=== PATIENT | female | born 1965 | race Caucasian/White ===

== ENCOUNTER 2017-02-08 15:10 | Inpatient (IN) ==
[2017-02-08 16:43] LABS: Basophils # 0.1 10*3/uL (0.0-0.2); Basophils % 0.4 % (0.0-0.8); Eosinophils # 0.1 10*3/uL (0.0-0.87); Eosinophils % 0.7 % (0.00-10.9); Hematocrit 43.9 VOL% (35.7-47.0); Hemoglobin 14.8 GM/DL (12.0-16.0); Immature Granulocytes % 0.5 %; Immature Granulocytes Absolute 0.06 #; Lymphocytes # 1.3 10*3/uL (1.4-4.0); Lymphocytes % 11.3 % (21.3-54.2); Mean Corpuscular HGB Conc 33.7 GM/DL (32-36); Mean Corpuscular Hemoglobin 27 PG (27-34); Mean Corpuscular Volume 81.3 FL (87-102); Mean Platelet Volume 10.3 FL (9.6-12.0); Monocytes # 0.3 10*3/uL (0.11-0.8); Monocytes % 2.6 % (1.7-12.7); Neutrophils # 9.6 10*3/uL (1.4-7.4); Neutrophils % 84.5 % (38.7-73.9); Platelet Count 175 T/CUMM (130-400); Red Cell Distribution Width 14.1 % (9.3-17.3); White Blood Count 11.3 T/CUMM (4-12)
[2017-02-08 16:57] LABS: INR 0.9; PT Patient Result 9.4 SECS
[2017-02-08 17:05] LABS: Albumin 3.7 G/DL (3.4-5.0); Bilirubin,Total 0.4 MG/DL (0.2-1.0); Calcium 8.4 MG/DL (8.5-10.1); Osmolality,Calculated 283.2 MOS/KG (273-304); Potassium 4.5 MMOL/L (3.5-5.1); Total Protein 7.4 G/DL (6.4-8.3)
[2017-02-08 17:07] LABS: Troponin I Only < 0.015 NG/ML (0.00-0.045)
[2017-02-08] MEDS ORDERED: APIXABAN 5 MG TABLET PO STA (17:23)
[2017-02-08] MEDS ORDERED: APIXABAN 5 MG TABLET ONE (17:49)
[2017-02-08] MEDS ORDERED: ALBUTEROL 2.5 MG/3 ML NEB RESP TX PRN (18:16)
[2017-02-08] MEDS ORDERED: GLUCAGON 1 MG VIAL IM PRN (18:22)
[2017-02-08] MEDS ORDERED: DEXTROSE 50% 25 GM/50 ML VIAL IV PRN (18:22)
[2017-02-08] MEDS ORDERED: ONDANSETRON 4 MG/2 ML VIAL IV PRN (18:22)
[2017-02-08] MEDS ORDERED: DOCUSATE SODIUM 100 MG CAPSULE PO PRN (18:22)
[2017-02-08] MEDS: SODIUM CHLORIDE 0.9% 1,000 ML IV SCH (20:59)
[2017-02-08] MEDS: GABAPENTIN 100 MG CAPSULE PO SCH (21:48)
[2017-02-08] MEDS: guaiFENesin 200 MG/10 ML UDCUP PO PRN (21:48)
[2017-02-08] MEDS: HydrOXYzine PAMOATE 50 MG CAPSULE PO SCH (21:48)
[2017-02-08] MEDS: PANTOPRAZOLE 40 MG VIAL IV SCH (21:49)
[2017-02-09] MEDS: INSULIN REGULAR 100 UNIT/ML SUBCUT SCH ×5 (00:09→21:34)
[2017-02-09 02:09] LABS: Basophils % 0.2 % (0.0-0.8); Hematocrit 43.9 VOL% (35.7-47.0); Immature Granulocytes % 0.9 %; Immature Granulocytes Absolute 0.08 #; Lymphocytes # 1.5 10*3/uL (1.4-4.0); Lymphocytes % 16.6 % (21.3-54.2); Mean Corpuscular HGB Conc 31.9 GM/DL (32-36); Mean Corpuscular Hemoglobin 27 PG (27-34); Mean Corpuscular Volume 83.3 FL (87-102); Mean Platelet Volume 10.2 FL (9.6-12.0); Monocytes # 0.4 10*3/uL (0.11-0.8); Monocytes % 4.2 % (1.7-12.7); Neutrophils # 7.3 10*3/uL (1.4-7.4); Neutrophils % 78.1 % (38.7-73.9); Platelet Count 182 T/CUMM (130-400); Red Blood Count 5.27 MC/CUMM (3.8-5.5); Red Cell Distribution Width 13.9 % (9.3-17.3); White Blood Count 9.3 T/CUMM (4-12)
[2017-02-09 02:44] LABS: Calcium 8.1 MG/DL (8.5-10.1); Osmolality,Calculated 288.5 MOS/KG (273-304); Potassium 4.2 MMOL/L (3.5-5.1)
[2017-02-09] MEDS: guaiFENesin 200 MG/10 ML UDCUP PO PRN ×2 (04:17→09:17)
[2017-02-09] MEDS: APIXABAN 5 MG TABLET PO SCH ×2 (05:10→18:33)
[2017-02-09] MEDS: SODIUM CHLORIDE 0.9% 1,000 ML IV SCH (08:26)
[2017-02-09] MEDS ORDERED: METFORMIN HCL PO SCH (09:00)
[2017-02-09] MEDS ORDERED: INSULIN DEGLUDEC 30 UNIT SUBCUT SCH (09:00)
[2017-02-09] MEDS ORDERED: DAPAGLIFLOZIN PO SCH (09:00)
[2017-02-09] MEDS ORDERED: [UNRECOGNIZED DRUG - OTHER] PO SCH (09:00)
[2017-02-09] MEDS: FLUoxetine 20 MG CAPSULE PO SCH (09:15)
[2017-02-09] MEDS: HydrOXYzine PAMOATE 50 MG CAPSULE PO SCH ×2 (09:15→21:34)
[2017-02-09] MEDS: amLODIPine 10 MG TABLET PO SCH (09:15)
[2017-02-09] MEDS: GABAPENTIN 100 MG CAPSULE PO SCH ×2 (09:15→21:34)
[2017-02-09] MEDS: PANTOPRAZOLE 40 MG VIAL IV SCH (18:33)
[2017-02-09] MEDS ORDERED: INSULIN REGULAR 100 UNIT/ML ONE (18:41)
[2017-02-10] MEDS: APIXABAN 5 MG TABLET PO SCH (06:26)
[2017-02-10] MEDS: guaiFENesin 200 MG/10 ML UDCUP PO PRN (06:29)
[2017-02-10 08:13] VITALS: BP 147/71
[2017-02-10] MEDS: HydrOXYzine PAMOATE 50 MG CAPSULE PO SCH (08:40)
[2017-02-10] MEDS: amLODIPine 10 MG TABLET PO SCH (08:40)
[2017-02-10] MEDS: GABAPENTIN 100 MG CAPSULE PO SCH (08:40)
[2017-02-10] MEDS: FLUoxetine 20 MG CAPSULE PO SCH (08:40)
[2017-02-10] MEDS: INSULIN REGULAR 100 UNIT/ML SUBCUT SCH (08:41)
== END 2017-02-10 13:04 | disposition home or self-care (01) | DRG 176 ==
LOC: N.ED 15:10 → N.EDINP 18:17 → N.ICU 19:25 → N.TELEN 02-09 11:08
PROVIDERS: ADMIT Internal Medicine; ATTEND Internal Medicine

== ENCOUNTER 2018-10-28 16:45 | Inpatient (IN) ==
[2018-10-28] MEDS ORDERED: LEVOFLOXACIN INJ 750 MG in PREMIX 1 EACH IV STA (20:36)
[2018-10-28] MEDS ORDERED: AZITHROMYCIN INJ 500 MG in SODIUM CHLORIDE 0.9% 250 ML IV STA (20:36)
[2018-10-28] MEDS ORDERED: SODIUM CHLORIDE 0.9% 500 ML IV STA (20:36)
[2018-10-28] MEDS ORDERED: methylPREDNISolone SOD SUC 125 MG/2 ML VIAL IV STA (20:36)
[2018-10-28] MEDS ORDERED: ONDANSETRON 4 MG/2 ML VIAL IV STA (20:36)
[2018-10-28] MEDS ORDERED: ALBUTEROL 2.5 MG/3 ML NEB RESP TX SCH (21:00)
[2018-10-28 21:14] LABS: ABG Base Excess 2.4 MMOL/L (-2.5-2.5); ABG HCO3 25.9 MMOL/L (20-26); ABG Oxygen Saturation 92.9 % (95-100); ABG PCO2 36.6 MM HG (35-48); ABG PH 7.468 (7.35-7.45); ABG PO2 62.6 MM HG (80-95); Allen Test Positive; Pt O2 Delivery Device Room Air
[2018-10-28 21:21] LABS: Basophils # 0.1 10*3/uL (0.0-0.2); Basophils % 0.4 % (0.0-0.8); Eosinophils # 0.1 10*3/uL (0.0-0.87); Eosinophils % 0.4 % (0.00-10.9); Hematocrit 43.2 VOL% (35.7-47.0); Hemoglobin 14.3 GM/DL (12.0-16.0); Immature Granulocytes % 0.9 %; Immature Granulocytes Absolute 0.12 #; Lymphocytes % 14.3 % (21.3-54.2); Mean Corpuscular HGB Conc 33.1 GM/DL (32-36); Mean Corpuscular Volume 86.7 FL (87-102); Monocytes % 4.5 % (1.7-12.7); Neutrophils % 79.5 % (38.7-73.9); Platelet Count 188 T/CUMM (130-400); Red Blood Count 4.98 MC/CUMM (3.8-5.5); White Blood Count 13.9 T/CUMM (4-12)
[2018-10-28 21:35] LABS: PT Patient Result 10.4 SECS (9.6-12.2)
[2018-10-28 21:41] LABS: Albumin 3.4 G/DL (3.4-5.0); Bilirubin,Total 0.6 MG/DL (0.2-1.0); Calcium 8.3 MG/DL (8.5-10.1); Total Protein 6.9 G/DL (6.4-8.3)
[2018-10-28] MEDS ORDERED: MAGNESIUM SULF RIDER 2 GM in PREMIX 1 EACH IV STA (22:24)
[2018-10-28] MEDS ORDERED: MORPHINE 4 MG/1 ML VIAL IV PRN (22:57)
[2018-10-28] MEDS ORDERED: diphenhydrAMINE CAP 25 MG CAPSULE PO PRN (22:57)
[2018-10-28] MEDS ORDERED: PROMETHAZINE 25 MG/1 ML VIAL IM PRN (22:57)
[2018-10-28] MEDS ORDERED: GLUCAGON 1 MG VIAL IM PRN (22:57)
[2018-10-28] MEDS ORDERED: NICOTINE 21 MG/24 HR PATCH TRANSDERM PRN (22:57)
[2018-10-28] MEDS ORDERED: BISACODYL 5 MG TABLET PO PRN (22:57)
[2018-10-28] MEDS ORDERED: ONDANSETRON 4 MG/2 ML VIAL IV PRN (22:57)
[2018-10-28] MEDS ORDERED: DEXTROSE 50% 25 GM/50 ML VIAL IV PRN (22:57)
[2018-10-28] MEDS ORDERED: SODIUM CHLORIDE 0.9% 3,300 ML IV ONE (23:06)
[2018-10-29 00:11] LABS: Risk Ratio 4.45; VLDL CHOLESTEROL 21.4 MG/DL
[2018-10-29] MEDS: SODIUM CHLORIDE 0.9% 1,000 ML IV SCH ×3 (01:30→18:27)
[2018-10-29] MEDS: INSULIN REGULAR 100 UNIT/ML SUBCUT SCH ×5 (01:46→18:24)
[2018-10-29 02:24] LABS: Basophils % 0.3 % (0.0-0.8); Hematocrit 40.7 VOL% (35.7-47.0); Hemoglobin 13.2 GM/DL (12.0-16.0); Immature Granulocytes % 0.7 %; Immature Granulocytes Absolute 0.08 #; Lymphocytes # 0.7 10*3/uL (1.4-4.0); Lymphocytes % 5.7 % (21.3-54.2); Mean Corpuscular HGB Conc 32.4 GM/DL (32-36); Mean Corpuscular Volume 89.1 FL (87-102); Mean Platelet Volume 10.3 FL (9.6-12.0); Monocytes % 0.9 % (1.7-12.7); Neutrophils % 92.4 % (38.7-73.9); Platelet Count 161 T/CUMM (130-400); Red Blood Count 4.57 MC/CUMM (3.8-5.5); Red Cell Distribution Width 14.1 % (9.3-17.3); White Blood Count 12.2 T/CUMM (4-12)
[2018-10-29 02:42] LABS: Albumin 2.8 G/DL (3.4-5.0); Bilirubin,Total 0.6 MG/DL (0.2-1.0); Calcium 7.1 MG/DL (8.5-10.1); Osmolality,Calculated 293.7 MOS/KG (273-304); Total Protein 6.5 G/DL (6.4-8.3)
[2018-10-29 02:45] LABS: Anisocytosis 1+; Band Neutrophils 7 % (0-10); Lymphocytes 2 % (20-55); Segmented Neutrophils 90 % (50-85); Total Cells Counted 100
[2018-10-29 02:46] LABS: Platelet Estimate Adequate
[2018-10-29 04:02] LABS: ABG Base Excess -2.5 MMOL/L (-2.5-2.5); ABG HCO3 22.2 MMOL/L (20-26); ABG Oxygen Saturation 95.5 % (95-100); ABG PCO2 41.6 MM HG (35-48); ABG PH 7.351 (7.35-7.45); ABG PO2 78.8 MM HG (80-95); ABG TCO2 20.3 MMOL/L (23-27)
[2018-10-29] MEDS ORDERED: SODIUM CHLORIDE 0.9% 1,000 ML IV ONE (06:40)
[2018-10-29] MEDS: ALBUTEROL/IPRATROPIUM 3 ML NEB RESP TX SCH ×4 (07:46→19:30)
[2018-10-29] MEDS ORDERED: MAGNESIUM SULF RIDER 4 GM in PREMIX 1 EACH IV PRN (08:22)
[2018-10-29] MEDS ORDERED: MAGNESIUM SULF RIDER 2 GM in PREMIX 1 EACH IV PRN (08:22)
[2018-10-29] MEDS ORDERED: Fluticasone Furoate-Vilanterol [Breo Ellipta] 1 PUFF INH SCH (09:00)
[2018-10-29] MEDS ORDERED: INSULIN GLARGINE 100 UNIT/ML SUBCUT SCH (09:00)
[2018-10-29] MEDS: amLODIPine 10 MG TABLET PO SCH (09:16)
[2018-10-29] MEDS: APIXABAN 5 MG TABLET PO SCH ×2 (09:16→21:14)
[2018-10-29 11:07] LABS: Apearance,Urine CLEAR (Clear); Bilirubin,Urine Negative (Negative); Blood, Urine Negative (Negative); Glucose,Urine (UA) >=500 mg/dL (Negative); Ketones,Urine 20 mg/dL (Negative); Nitrite,Urine Negative (Negative); Protein,Urine Negative; RBC,Urine 2 /HPF (0-4); Squamous Epithelial Cell,Urine Occasional /HPF (0-10); Urine Color Straw (Yellow); Urine Specific Gravity 1.022 (1.001-1.035); Urine Urobilinogen < 2.0 EU/DL (0.2-1.0); WBC,Urine <1 /HPF (0-6)
[2018-10-29] MEDS: guaiFENesin/DM ER 600-30 MG TABLET PO PRN (17:06)
[2018-10-29] MEDS: SIMVASTATIN 20 MG TABLET PO SCH (21:14)
[2018-10-29] MEDS: FLUoxetine 20 MG CAPSULE PO SCH (21:14)
[2018-10-29] MEDS: GABAPENTIN 300 MG CAPSULE PO SCH (21:14)
[2018-10-29] MEDS ORDERED: AZITHROMYCIN INJ 500 MG in SODIUM CHLORIDE 0.9% 250 ML IV SCH (22:00)
[2018-10-29] MEDS: LEVOFLOXACIN INJ 750 MG in PREMIX 1 EACH IV SCH (22:19)
[2018-10-30] MEDS: ALBUTEROL/IPRATROPIUM 3 ML NEB RESP TX SCH ×4 (00:16→19:02)
[2018-10-30] MEDS: INSULIN REGULAR 100 UNIT/ML SUBCUT SCH ×4 (02:11→18:35)
[2018-10-30] MEDS: SODIUM CHLORIDE 0.9% 1,000 ML IV SCH ×3 (03:05→21:30)
[2018-10-30] MEDS: ACETAMINOPHEN 325 MG TABLET PO PRN ×3 (03:49→18:31)
[2018-10-30] MEDS: APIXABAN 5 MG TABLET PO SCH ×2 (09:34→21:29)
[2018-10-30] MEDS: amLODIPine 10 MG TABLET PO SCH (09:34)
[2018-10-30] MEDS: INSULIN GLARGINE 100 UNIT/ML SUBCUT SCH (09:34)
[2018-10-30] MEDS: guaiFENesin/DM ER 600-30 MG TABLET PO PRN ×2 (09:37→22:40)
[2018-10-30] MEDS ORDERED: KETOROLAC 10 MG TABLET PO PRN (14:53)
[2018-10-30] MEDS: FLUoxetine 20 MG CAPSULE PO SCH (21:29)
[2018-10-30] MEDS: SIMVASTATIN 20 MG TABLET PO SCH (21:29)
[2018-10-30] MEDS: GABAPENTIN 300 MG CAPSULE PO SCH (21:30)
[2018-10-30] MEDS: LEVOFLOXACIN INJ 750 MG in PREMIX 1 EACH IV SCH (21:30)
[2018-10-31] MEDS: ALBUTEROL/IPRATROPIUM 3 ML NEB RESP TX SCH ×2 (00:08→07:00)
[2018-10-31] MEDS: INSULIN REGULAR 100 UNIT/ML SUBCUT SCH ×2 (01:04→05:52)
[2018-10-31 04:51] LABS: Basophils % 0.3 % (0.0-0.8); Eosinophils # 0.3 10*3/uL (0.0-0.87); Eosinophils % 2.2 % (0.00-10.9); Hematocrit 38.9 VOL% (35.7-47.0); Hemoglobin 12.4 GM/DL (12.0-16.0); Immature Granulocytes % 0.5 %; Immature Granulocytes Absolute 0.06 #; Lymphocytes # 3.1 10*3/uL (1.4-4.0); Lymphocytes % 25.8 % (21.3-54.2); Mean Corpuscular HGB Conc 31.9 GM/DL (32-36); Mean Corpuscular Volume 89.6 FL (87-102); Mean Platelet Volume 10.7 FL (9.6-12.0); Monocytes % 5.1 % (1.7-12.7); Neutrophils % 66.1 % (38.7-73.9); Platelet Count 194 T/CUMM (130-400); Red Blood Count 4.34 MC/CUMM (3.8-5.5); Red Cell Distribution Width 14.6 % (9.3-17.3); White Blood Count 11.9 T/CUMM (4-12)
[2018-10-31 05:14] LABS: Calcium 7.8 MG/DL (8.5-10.1); Osmolality,Calculated 280.3 MOS/KG (273-304)
[2018-10-31] MEDS: ACETAMINOPHEN 325 MG TABLET PO PRN (06:50)
[2018-10-31] MEDS: SODIUM CHLORIDE 0.9% 1,000 ML IV SCH ×2 (06:51→09:44)
[2018-10-31] MEDS ORDERED: FUROSEMIDE 40 MG/4 ML VIAL IV ONE (08:21)
[2018-10-31] MEDS: APIXABAN 5 MG TABLET PO SCH (08:43)
[2018-10-31] MEDS: amLODIPine 10 MG TABLET PO SCH (08:43)
[2018-10-31] MEDS: INSULIN GLARGINE 100 UNIT/ML SUBCUT SCH (08:44)
[2018-10-31] MEDS ORDERED: POTASSIUM CHLORIDE 20 MEQ TABLET PO ONE ×2 (09:46→11:42)
[2018-10-31 09:52] VITALS: BP 142/75
== END 2018-10-31 12:21 | disposition home or self-care (01) | DRG 194 ==
LOC: N.ED 16:45 → SUATTDRO 22:57 → N.EDINP 22:57 → N.5E 10-29 00:02
PROVIDERS: ADMIT Internal Medicine

== ENCOUNTER 2020-05-12 19:29 | Inpatient (IN) ==
[2020-05-12] MEDS ORDERED: LABETALOL 20 MG/4 ML SYRINGE IV STA (20:30)
[2020-05-12] MEDS ORDERED: ONDANSETRON 4 MG/2 ML VIAL IV ONE (20:32)
[2020-05-12 22:06] LABS: Albumin 3.5 G/DL (3.4-5.0); Bilirubin,Total 0.5 MG/DL (0.2-1.0); Calcium 8.7 MG/DL (8.5-10.1); Osmolality,Calculated 277.5 MOS/KG (273-304); Potassium 5.1 MMOL/L (3.5-5.1); Total Protein 7.1 G/DL (6.4-8.2)
[2020-05-12] MEDS ORDERED: ASPIRIN EC 325 MG TABLET PO STA (22:07)
[2020-05-12] MEDS ORDERED: MORPHINE 4 MG/1 ML VIAL IV STA (22:07)
[2020-05-12] MEDS ORDERED: NITROGLYCERIN SL 0.4 MG TABLET SL STA ×2 (22:07→23:43)
[2020-05-12 22:13] LABS: Basophils # 0.1 10*3/uL (0.0-0.2); Basophils % 0.7 % (0.0-0.8); Eosinophils # 0.2 10*3/uL (0.0-0.87); Eosinophils % 2.1 % (0.00-10.9); Immature Granulocytes % 0.5 %; Immature Granulocytes Absolute 0.04 #; Lymphocytes # 3.3 10*3/uL (1.4-4.0); Lymphocytes % 38.7 % (21.3-54.2); Mean Corpuscular HGB Conc 33.3 GM/DL (32-36); Mean Corpuscular Volume 84.8 FL (87-102); Mean Platelet Volume 9.9 FL (9.6-12.0); Monocytes % 4.7 % (1.7-12.7); Neutrophils % 53.3 % (38.7-73.9); Platelet Count 203 T/CUMM (130-400); Red Blood Count 4.95 MC/CUMM (3.8-5.5); White Blood Count 8.5 T/CUMM (4-12)
[2020-05-12] MEDS ORDERED: INSULIN REGULAR 100 UNIT/ML IV STA (22:22)
[2020-05-12 22:24] LABS: INR 0.9; Partial Thromboplastin Time 23.7 SECS (23.9-33.8)
[2020-05-12] MEDS ORDERED: ENOXAPARIN 30 MG/0.3 ML SYRINGE SUBCUT STA (23:36)
[2020-05-12] MEDS ORDERED: GLUCAGON 1 MG VIAL IM PRN (23:38)
[2020-05-12] MEDS ORDERED: DEXTROSE 50% 25 GM/50 ML VIAL IV PRN (23:38)
[2020-05-12] MEDS ORDERED: DOCUSATE SODIUM 100 MG CAPSULE PO PRN (23:38)
[2020-05-12] MEDS ORDERED: MORPHINE 4 MG/1 ML VIAL IV PRN (23:38)
[2020-05-12] MEDS ORDERED: diphenhydrAMINE CAP 25 MG CAPSULE PO PRN (23:38)
[2020-05-12] MEDS ORDERED: SIMETHICONE CHEW 125 MG TABLET PO PRN (23:38)
[2020-05-12] MEDS ORDERED: ALUMINUM/MAGNES/SIMETH MAX STR 30 ML UDCUP PO PRN (23:38)
[2020-05-12] MEDS ORDERED: NICOTINE 21 MG/24 HR PATCH TRANSDERM PRN (23:38)
[2020-05-12] MEDS ORDERED: hydrALAZINE 20 MG/1 ML VIAL IV PRN (23:38)
[2020-05-12] MEDS ORDERED: guaiFENesin/DM ER 600-30 MG TABLET PO PRN (23:38)
[2020-05-12] MEDS ORDERED: ONDANSETRON 4 MG/2 ML VIAL IV PRN (23:38)
[2020-05-12] MEDS ORDERED: ENOXAPARIN 100 MG/ML SYRINGE SUBCUT STA (23:40)
[2020-05-12] MEDS ORDERED: HydrOXYzine PAMOATE 50 MG CAPSULE PO PRN (23:43)
[2020-05-12] MEDS ORDERED: NITROGLYCERIN SL 0.4 MG TABLET SL PRN (23:44)
[2020-05-13] MEDS: ALBUTEROL/IPRATROPIUM 3 ML NEB RESP TX SCH ×4 (00:32→19:28)
[2020-05-13 04:13] LABS: Basophils # 0.1 10*3/uL (0.0-0.2); Basophils % 0.5 % (0.0-0.8); Eosinophils # 0.2 10*3/uL (0.0-0.87); Eosinophils % 2.3 % (0.00-10.9); Hematocrit 41.1 VOL% (35.7-47.0); Hemoglobin 13.8 GM/DL (12.0-16.0); Immature Granulocytes % 0.4 %; Immature Granulocytes Absolute 0.04 #; Lymphocytes # 3.5 10*3/uL (1.4-4.0); Lymphocytes % 38.7 % (21.3-54.2); Mean Corpuscular HGB Conc 33.6 GM/DL (32-36); Mean Corpuscular Volume 83.7 FL (87-102); Mean Platelet Volume 10.3 FL (9.6-12.0); Monocytes % 5.7 % (1.7-12.7); Neutrophils % 52.4 % (38.7-73.9); Platelet Count 193 T/CUMM (130-400); Red Blood Count 4.91 MC/CUMM (3.8-5.5); Red Cell Distribution Width 13.2 % (9.3-17.3); White Blood Count 9.1 T/CUMM (4-12)
[2020-05-13 05:56] LABS: Albumin 3.5 G/DL (3.4-5.0); Bilirubin,Total 0.4 MG/DL (0.2-1.0); Calcium 8.6 MG/DL (8.5-10.1); Osmolality,Calculated 273.2 MOS/KG (273-304); Total Protein 6.6 G/DL (6.4-8.2)
[2020-05-13 07:26] LABS: Risk Ratio 4.57; VLDL CHOLESTEROL 37.2 MG/DL
[2020-05-13] MEDS: INSULIN LISPRO 100 UNIT/ML SUBCUT SCH ×4 (07:27→21:50)
[2020-05-13] MEDS ORDERED: SIMVASTATIN 20 MG TABLET PO SCH (09:00)
[2020-05-13] MEDS ORDERED: ENOXAPARIN 100 MG/ML SYRINGE SUBCUT SCH (09:00)
[2020-05-13] MEDS: ASPIRIN EC 325 MG TABLET PO SCH (09:26)
[2020-05-13] MEDS: MAGNESIUM CHLORIDE 64 MG TABLET PO SCH (09:27)
[2020-05-13] MEDS: amLODIPine 10 MG TABLET PO SCH (09:27)
[2020-05-13] MEDS: carvediloL 3.125 MG TABLET PO SCH ×2 (09:27→21:50)
[2020-05-13] MEDS: PANTOPRAZOLE 40 MG TABLET PO SCH (09:27)
[2020-05-13] MEDS: INSULIN GLARGINE 100 UNIT/ML SUBCUT SCH (09:36)
[2020-05-13] MEDS ORDERED: diphenhydrAMINE CAP 25 MG CAPSULE PO ONE (10:05)
[2020-05-13] MEDS ORDERED: DIAZEPAM 5 MG TABLET PO ONE (10:05)
[2020-05-13] MEDS ORDERED: KETOROLAC 30 MG/1 ML VIAL IV PRN (10:07)
[2020-05-13] MEDS ORDERED: SODIUM CHLORIDE 0.9% 1,000 ML IV SCH (12:00)
[2020-05-13] MEDS ORDERED: LIDOCAINE 1% 20 ML VIAL ONE (13:51)
[2020-05-13] MEDS ORDERED: NITROGLYCERIN DRIP 50 MG/250 ML BOTTLE IV ONE (13:51)
[2020-05-13] MEDS ORDERED: VERAPAMIL 5 MG/2 ML VIAL ONE (13:51)
[2020-05-13] MEDS ORDERED: MIDAZOLAM 2 MG/2 ML VIAL ONE (14:32)
[2020-05-13] MEDS ORDERED: HYDROmorphone 2 MG/1 ML VIAL ONE (14:33)
[2020-05-13] MEDS ORDERED: ENOXAPARIN 60 MG/0.6 ML SYRINGE ONE (14:56)
[2020-05-13] MEDS ORDERED: TIROFIBAN 5,000 MCG/100 ML PREMIX IV ONE (15:03)
[2020-05-13] MEDS ORDERED: TIROFIBAN 5,000 MCG/100 ML PREMIX IV SCH (15:10)
[2020-05-13] MEDS ORDERED: ENOXAPARIN 30 MG/0.3 ML SYRINGE ONE (15:27)
[2020-05-13] MEDS ORDERED: PRASUGREL 10 MG TABLET ONE (15:32)
[2020-05-13] MEDS: INFLUENZA VIRUS VACCINE 0.5 ML SYRINGE IM ONE ×2 (17:53→18:08)
[2020-05-13] MEDS: ASPIRIN EC 81 MG TABLET PO SCH (17:59)
[2020-05-13] MEDS: PRASUGREL 10 MG TABLET PO SCH (17:59)
[2020-05-13] MEDS: ROSUVASTATIN 20 MG TABLET PO SCH (17:59)
[2020-05-13 20:34] LABS: CKMB % 8.7 %
[2020-05-13 20:36] LABS: Troponin I 75.5 NG/ML (0.00-0.045)
[2020-05-13] MEDS ORDERED: GABAPENTIN 300 MG CAPSULE PO SCH (21:00)
[2020-05-14] MEDS: ALBUTEROL/IPRATROPIUM 3 ML NEB RESP TX SCH ×2 (00:51→07:02)
[2020-05-14 05:04] LABS: Basophils % 0.4 % (0.0-0.8); Eosinophils # 0.2 10*3/uL (0.0-0.87); Eosinophils % 2.1 % (0.00-10.9); Immature Granulocytes % 0.5 %; Immature Granulocytes Absolute 0.04 #; Lymphocytes # 2.7 10*3/uL (1.4-4.0); Lymphocytes % 35.2 % (21.3-54.2); Mean Corpuscular HGB Conc 34.3 GM/DL (32-36); Mean Corpuscular Volume 84.5 FL (87-102); Mean Platelet Volume 10.1 FL (9.6-12.0); Monocytes % 7.1 % (1.7-12.7); Neutrophils % 54.7 % (38.7-73.9); Platelet Count 178 T/CUMM (130-400); Red Blood Count 4.14 MC/CUMM (3.8-5.5); Red Cell Distribution Width 13.3 % (9.3-17.3); White Blood Count 7.6 T/CUMM (4-12)
[2020-05-14 05:46] LABS: CKMB % 6.5 %; Calcium 7.9 MG/DL (8.5-10.1); Potassium 4.1 MMOL/L (3.5-5.1)
[2020-05-14 05:53] LABS: Troponin I 23.8 NG/ML (0.00-0.045)
[2020-05-14] MEDS ORDERED: DEXTROSE 50% 25 GM/50 ML VIAL IV PRN (08:52)
[2020-05-14] MEDS ORDERED: GLUCAGON 1 MG VIAL IM PRN (08:52)
[2020-05-14] MEDS: INSULIN GLARGINE 100 UNIT/ML SUBCUT SCH (08:54)
[2020-05-14] MEDS: PRASUGREL 10 MG TABLET PO SCH (08:54)
[2020-05-14] MEDS: ASPIRIN EC 325 MG TABLET PO SCH (08:54)
[2020-05-14] MEDS: ASPIRIN EC 81 MG TABLET PO SCH (08:54)
[2020-05-14] MEDS: carvediloL 3.125 MG TABLET PO SCH (08:54)
[2020-05-14] MEDS: PANTOPRAZOLE 40 MG TABLET PO SCH (08:55)
[2020-05-14] MEDS: amLODIPine 10 MG TABLET PO SCH (08:55)
[2020-05-14] MEDS: MAGNESIUM CHLORIDE 64 MG TABLET PO SCH (08:55)
[2020-05-14] MEDS: ROSUVASTATIN 20 MG TABLET PO SCH ×2 (08:58→09:05)
[2020-05-14] MEDS: INSULIN LISPRO 100 UNIT/ML SUBCUT SCH ×2 (09:04→12:25)
[2020-05-14 12:12] VITALS: BP 108/69
== END 2020-05-14 12:59 | disposition home or self-care (01) | DRG 247 ==
LOC: N.ED 19:29 → N.EDINP 23:38 → N.TELEN 05-13 12:28
PROVIDERS: ADMIT Internal Medicine Geriatric Medicine; ATTEND Internal Medicine Geriatric Medicine

== ENCOUNTER 2021-11-15 17:29 | Inpatient (IN) ==
[2021-11-15] MEDS ORDERED: VANCOMYCIN INJ 1,000 MG in SODIUM CHLORIDE 0.9% 250 ML IV STA (17:55)
[2021-11-15 18:40] LABS: Basophils % 0.6 % (0.0-0.8); Eosinophils # 0.3 10*3/uL (0.0-0.87); Eosinophils % 4.4 % (0.00-10.9); Hematocrit 42.1 VOL% (35.7-47.0); Hemoglobin 12.9 GM/DL (12.0-16.0); Immature Granulocytes % 0.3 %; Immature Granulocytes Absolute 0.02 #; Lymphocytes # 2.6 10*3/uL (1.4-4.0); Lymphocytes % 36.4 % (21.3-54.2); Mean Corpuscular HGB Conc 30.6 GM/DL (32-36); Mean Corpuscular Volume 87.9 FL (87-102); Mean Platelet Volume 9.8 FL (9.6-12.0); Monocytes # 0.5 10*3/uL (0.11-0.8); Neutrophils % 51.3 % (38.7-73.9); Platelet Count 281 T/CUMM (130-400); Red Blood Count 4.79 MC/CUMM (3.8-5.5); Red Cell Distribution Width 15.7 % (9.3-17.3); White Blood Count 7.1 T/CUMM (4-12)
[2021-11-15 19:07] LABS: Albumin 3.5 G/DL (3.4-5.0); Bilirubin,Total 0.4 MG/DL (0.20-1.00); Calcium 8.5 MG/DL (8.5-10.1); Osmolality,Calculated 273.8 MOS/KG (273-304); Potassium 4.2 MMOL/L (3.5-5.1); Total Protein 8.3 G/DL (6.4-8.2)
[2021-11-15] MEDS ORDERED: LEVOFLOXACIN INJ 750 MG/150 ML PREMIX IV STA (19:46)
[2021-11-15] MEDS ORDERED: ZALEPLON 5 MG CAPSULE PO PRN (20:24)
[2021-11-15] MEDS ORDERED: DOCUSATE SODIUM 100 MG CAPSULE PO PRN (20:24)
[2021-11-15] MEDS ORDERED: ONDANSETRON 4 MG/2 ML VIAL IV PRN (20:24)
[2021-11-15] MEDS ORDERED: hydrALAZINE 20 MG/1 ML VIAL IV PRN (20:24)
[2021-11-15] MEDS ORDERED: ACETAMINOPHEN 325 MG TABLET PO PRN (20:24)
[2021-11-15] MEDS ORDERED: NITROGLYCERIN SL 0.4 MG TABLET SL PRN (20:59)
[2021-11-15] MEDS ORDERED: ENOXAPARIN 40 MG/0.4 ML SYRINGE SUBCUT SCH (21:00)
[2021-11-15] MEDS: INSULIN REGULAR 100 UNIT/ML SUBCUT SCH (22:23)
[2021-11-15] MEDS: INSULIN GLARGINE 100 UNIT/ML SUBCUT SCH (23:00)
[2021-11-15] MEDS: ROSUVASTATIN 20 MG TABLET PO SCH (23:00)
[2021-11-16] MEDS: ALBUTEROL/IPRATROPIUM 3 ML NEB RESP TX SCH ×3 (00:19→12:42)
[2021-11-16] MEDS ORDERED: INFLUENZA VIRUS VACCINE 0.5 ML SYRINGE IM ONE (01:07)
[2021-11-16] MEDS: VANCOMYCIN INJ 1,500 MG in SODIUM CHLORIDE 0.9% 500 ML IV SCH ×2 (05:42→17:22)
[2021-11-16 07:13] LABS: Basophils % 0.8 % (0.0-0.8); Eosinophils # 0.2 10*3/uL (0.0-0.87); Hematocrit 40.7 VOL% (35.7-47.0); Hemoglobin 12.5 GM/DL (12.0-16.0); Immature Granulocytes % 0.4 %; Immature Granulocytes Absolute 0.02 #; Lymphocytes # 1.5 10*3/uL (1.4-4.0); Lymphocytes % 27.5 % (21.3-54.2); Mean Corpuscular HGB Conc 30.7 GM/DL (32-36); Mean Corpuscular Volume 87.3 FL (87-102); Monocytes # 0.4 10*3/uL (0.11-0.8); Monocytes % 7.2 % (1.7-12.7); Neutrophils % 60.1 % (38.7-73.9); Platelet Count 248 T/CUMM (130-400); Red Blood Count 4.66 MC/CUMM (3.8-5.5); Red Cell Distribution Width 15.5 % (9.3-17.3); White Blood Count 5.3 T/CUMM (4-12)
[2021-11-16] MEDS ORDERED: GLUCAGON 1 MG VIAL IM PRN (07:40)
[2021-11-16] MEDS ORDERED: DEXTROSE 10% 250 ML BAG IV PRN (07:40)
[2021-11-16 07:53] LABS: Osmolality,Calculated 277.5 MOS/KG (273-304); Potassium 4.1 MMOL/L (3.5-5.1); Thyroid Stimulating Hormone 2.3 uIU/ml (0.358-3.74)
[2021-11-16] MEDS: INSULIN REGULAR 100 UNIT/ML SUBCUT SCH ×4 (08:51→20:49)
[2021-11-16] MEDS ORDERED: amLODIPine 5 MG TABLET PO SCH (09:00)
[2021-11-16] MEDS: cefTRIAXone 2,000 MG in SODIUM CHLORIDE 0.9% 100 ML IV SCH (09:39)
[2021-11-16] MEDS: PANTOPRAZOLE 40 MG TABLET PO SCH (09:41)
[2021-11-16] MEDS: GABAPENTIN 100 MG CAPSULE PO SCH ×3 (09:41→20:34)
[2021-11-16] MEDS: FLUoxetine 20 MG CAPSULE PO SCH (09:41)
[2021-11-16] MEDS: amLODIPine 5 MG TABLET PO SCH (09:42)
[2021-11-16] MEDS: DAPAGLIFLOZIN 5 MG TABLET PO SCH (09:42)
[2021-11-16] MEDS: buPROPion SR 150 MG TABLET PO SCH (09:42)
[2021-11-16] MEDS: MENTHOL/ZINC OXIDE OINT 71 GM JAR TOP SCH ×2 (13:09→20:34)
[2021-11-16] MEDS: metFORMIN 500 MG TABLET PO SCH (17:22)
[2021-11-16] MEDS: ROSUVASTATIN 20 MG TABLET PO SCH (20:33)
[2021-11-16] MEDS: APIXABAN 5 MG TABLET PO SCH (20:34)
[2021-11-16] MEDS: INSULIN GLARGINE 100 UNIT/ML SUBCUT SCH (20:35)
[2021-11-16] MEDS ORDERED: MAGNESIUM CHLORIDE 64 MG TABLET PO SCH (21:00)
[2021-11-16] MEDS ORDERED: amLODIPine 2.5 MG TABLET PO SCH (21:00)
[2021-11-16] MEDS ORDERED: LEVOFLOXACIN INJ 750 MG/150 ML PREMIX IV SCH (21:00)
[2021-11-17 04:51] LABS: Basophils % 0.5 % (0.0-0.8); Eosinophils # 0.3 10*3/uL (0.0-0.87); Eosinophils % 5.8 % (0.00-10.9); Hematocrit 39.4 VOL% (35.7-47.0); Immature Granulocytes % 0.3 %; Immature Granulocytes Absolute 0.02 #; Lymphocytes % 34.3 % (21.3-54.2); Mean Corpuscular HGB Conc 30.5 GM/DL (32-36); Mean Corpuscular Volume 87.9 FL (87-102); Mean Platelet Volume 9.9 FL (9.6-12.0); Monocytes # 0.5 10*3/uL (0.11-0.8); Monocytes % 8.4 % (1.7-12.7); Neutrophils % 50.7 % (38.7-73.9); Platelet Count 251 T/CUMM (130-400); Red Blood Count 4.48 MC/CUMM (3.8-5.5); Red Cell Distribution Width 15.8 % (9.3-17.3); White Blood Count 5.8 T/CUMM (4-12)
[2021-11-17 05:07] LABS: Calcium 8.7 MG/DL (8.5-10.1); Osmolality,Calculated 281.4 MOS/KG (273-304); Potassium 4.2 MMOL/L (3.5-5.1)
[2021-11-17] MEDS: VANCOMYCIN INJ 1,500 MG in SODIUM CHLORIDE 0.9% 500 ML IV SCH (05:21)
[2021-11-17] MEDS ORDERED: CLOPIDOGREL 75 MG TABLET PO SCH (09:00)
[2021-11-17] MEDS: metFORMIN 500 MG TABLET PO SCH (09:13)
[2021-11-17] MEDS: DAPAGLIFLOZIN 5 MG TABLET PO SCH (09:13)
[2021-11-17] MEDS: buPROPion SR 150 MG TABLET PO SCH (09:14)
[2021-11-17] MEDS: GABAPENTIN 100 MG CAPSULE PO SCH (09:14)
[2021-11-17] MEDS: FLUoxetine 20 MG CAPSULE PO SCH (09:14)
[2021-11-17] MEDS: amLODIPine 5 MG TABLET PO SCH (09:15)
[2021-11-17] MEDS: PANTOPRAZOLE 40 MG TABLET PO SCH (09:15)
[2021-11-17] MEDS: APIXABAN 5 MG TABLET PO SCH (09:15)
[2021-11-17] MEDS: MENTHOL/ZINC OXIDE OINT 71 GM JAR TOP SCH (09:15)
[2021-11-17] MEDS: INSULIN REGULAR 100 UNIT/ML SUBCUT SCH ×2 (09:16→12:38)
[2021-11-17] MEDS: cefTRIAXone 2,000 MG in SODIUM CHLORIDE 0.9% 100 ML IV SCH (12:38)
[2021-11-17 15:42] VITALS: BP 132/62
[2021-11-17] MEDS ORDERED: DOXYCYCLINE HYCLATE 100 MG CAPSULE PO SCH (21:00)
== END 2021-11-17 17:00 | disposition home or self-care (01) | DRG 638 ==
LOC: N.ED 17:29 → N.3E 20:23
PROVIDERS: ADMIT Hospitalist; ATTEND Hospitalist